=== PATIENT | female | born 1995 | race Caucasian/White ===

== ENCOUNTER 2020-02-05 16:13 | Outpatient (CLI) | payer OTHER, SELFPAY ==
--- NOTE | 2020-02-05 16:45 | MR_ITS ---
WS: [id number] MRI RIGHT KNEE NONCONTRAST TECHNIQUE: Axial PD, coronal PD fat sat, coronal PD, sagittal PD, and sagittal PD fat-sat images obta ined. CLINICAL INFORMATION: RT KNEE PAIN COMPARISON: None. FINDINGS: Distal quadriceps and patella tendons are intact. Hypertrophic patella. Normal ACL and PCL. Evidence of recent lateral patellar dislocation with kissing contusions on the patella and lateral femoral con dyle. Osteochondral injury involving the medial patella facet. Intrasubstance partial tear involving the medial patellofemoral ligament at the insertion. Patella retinaculum appears intact. Somewhat shallow trochlear groove. Residual lateral subluxation of the patella. Mild chondromalacia p atella. No visualized avulsed osteochondral fragments or intra-articular loose bodies. Normal medial and lateral meniscus. No acute appearing meniscal tears. Normal medial and lateral join t compartments. Medial and lateral collateral ligaments are intact. Normal popliteal fossa. MR/MR knee RT wo con* [id number] IMPRESSION: 1. Evidence of recent lateral patellar dislocation with kissing contusion on t he medial aspect of the patella and lateral femoral condyle with contusion. No visualized avulsed osteochondral fragments. 2. Partial intrasubstance tear involving the medial patellofemoral ligament at the insertion. Retinaculum otherwise appears intact 3. Mild chondromalacia patella 4. Shallow trochlear groove with residual lateral subluxation of patella. 5. Normal ACL and PCL.
== END 2020-02-05 16:14 | disposition home or self-care (01) ==
PROVIDERS: Visit Provider Nurse Practitioner
DX: S76.111A Strain of right quadriceps muscle, fascia and tendon, initial encounter (principal); X58.XXXA Exposure to other specified factors, initial encounter
CPT/HCPCS: 73721

== ENCOUNTER → 2020-02-07 11:13 | Outpatient (BNVA) | payer OTHER, SELFPAY | PROVIDERS: Referring Provider Nurse Practitioner; Visit Provider Orthopaedic Surgery | DX: M25.361 Other instability, right knee (principal); M25.362 Other instability, left knee; M25.562 Pain in left knee | CPT/HCPCS: 73560; 73565 ==

== ENCOUNTER 2020-02-22 15:02 | Outpatient (CLI) | payer OTHER, SELFPAY ==
--- NOTE | 2020-02-22 15:15 | MR_ITS ---
WS: [id number] MRI LEFT KNEE NONCONTRAST TECHNIQUE: Axial PD, coronal PD fat sat, coronal PD, sagittal PD, and sagittal PD fat-sat images obta ined. CLINICAL INFORMATION: M25.362 Other instability, left knee COMPARISON: None. FINDINGS: Distal quadriceps and patella tendons are intact. Slightly hypertrophic patella. No significant joint effusion. Small amount of prepatellar soft tissue edema. Normal ACL and PCL. Medial and lateral meni scus are normal in appearance. No acute appearing meniscal tears. Mild thinning of the medial and lat eral meniscus. Patellar instability with lateral subluxation of the patella from the trochlear groove. Mild chondrom alacia patella. Medial and lateral patellar retinacula appear intact. No ligamentous edema. No eviden ce of subchondral contusion or subchondral fracture to indicate recent traumatic dislocation. Somewha t shallow trochlear groove. Tiny amount of signal abnormality inferior pole of the patella. No visual ized loose bodies. Medial and lateral collateral ligaments appear intact. No evidence of ligamentous collateral ligament injury. No edema along the femoral condyles or tibial plateau. Small lobular popliteal cyst measurin g 0.5 x 2.0 CCM. MR/MR knee LT wo con* [id number] IMPRESSION: 1. Evidence of patellar instability with lateral subluxation of the patella fr om the trochlear groove. Correlation for patellar instability. 2. Medial and lateral patellar retinacula appear intact. No evidence of femora l contusion to indicate recent traumatic dislocation. Tiny amount of edema frank g the inferior pole of the patella. 3. Somewhat shallow trochlear groove. 4. Anterior and posterior cruciate ligaments are intact. 5. No acute appearing meniscal tears. 6. Normal bone marrow signal involving the distal femoral condyles and tibial plateau. No bony contusion. 7. Small popliteal cyst
== END 2020-02-22 15:03 | disposition home or self-care (01) ==
LOC: RADSHAW 15:06
PROVIDERS: Visit Provider Orthopaedic Surgery
DX: M25.362 Other instability, left knee (principal); M71.22 Synovial cyst of popliteal space [Baker], left knee
CPT/HCPCS: 73721

== ENCOUNTER → 2020-04-12 12:37 | Outpatient (BNVA) | payer OTHER, SELFPAY | PROVIDERS: Visit Provider Orthopaedic Surgery | DX: Z11.59 Encounter for screening for other viral diseases (principal) | CPT/HCPCS: 87635 ==

== ENCOUNTER 2020-04-18 06:48 | Day surgery (SDC) | payer OTHER, SELFPAY ==
[2020-04-17 11:02] VITALS: BMI 24.1
[2020-04-18] VITALS (9 sets, daily range): BP systolic 105–130; BP diastolic 65–88; PULSE 81–99; RESP 12–18; TEMP 36.5–36.7; O2SAT 94–100
--- NOTE | 2020-04-18 | SCC_ITS ---
Procedure Done: Left medial patellofemoral ligament reconstruction, diagnostic arthroscopy left knee 40.5 seconds of fluoroscopic guidance, for a cumulative dose of 1.76 mGy, was provided to Dr. Marcos by the radiology department. C-arm images of the LEFT knee were saved for the patient's permanent record. [facility] MED[facility] CENTERFrancie
--- NOTE | 2020-04-18 | XR_ITS ---
WS: [id number] INTRAOPERATIVE TECHNIQUE: 3 Spot fluoroscopic images for intraoperative purposes. FLUOROSCOPY TIME: 40.5 seconds CLINICAL INFORMATION: patellar instability lt. knee COMPARISON: None. FINDINGS: 3 fluoroscopic intraoperative images obtained for patellar instability XR/XR knee LT 1-2V [id number] IMPRESSION: Images obtained for intraoperative purposes.
[2020-04-18 07:02] LABS: OR HCG Qualitative Urine Negative (Negative)
--- NOTE | 2020-04-18 07:23 | ANES.PREANE2 ---
Pre-Anesthetic Assessment Pre-Anesthetic Assessment: Height/Weight: Height 1.65 m Weight 65.771 kg Temp Pulse Resp BP Pulse Ox 98.0 F 81 18 115/70 100 04/18/20 07:06 04/18/20 07:06 04/18/20 07:06 04/18/20 07:06 04/18/20 07:06 Preop Diagnosis: Left patellar instability Proposed Procedure: Operation Date: 04/18/20 08:30 Proposed Procedures p Left Knee Patellofemoral Ligament Reconstruction 53170 M25.62(Left) - Gonzales Marcos MD Familial anesthetic complications: None Was Beta Michael taken within 24 hours: N/A Last intake: NPO > 8 hrs Social: Social History: No alcohol and No tobacco Exam: Pre-Anes Outpt Exam: alert, oriented x 3, clear to auscultation bilaterally and regular rate & rhythm Airway: Cervical ROM: WNL MP: 1 Dentition: Chipped Pulmonary: Pulmonary: Asthma CV/HEM: CV/HEM: Anemia ( Borderline ) Metabolic: Metabolic: Thyroid Neuropsych: Neuropsych: Anxiety Anesthetic Plan: ASA status: 2 Anesthesia: General Risk of > 500 ml blood loss (7ml/kg in children): No Data Anesthesia Other Labs: Laboratory Results - last 48 hr 04/18/20 06:55 Urine HCG, Qual Negative Cardiac Studies: No Data to Display
[2020-04-18] MEDS: sodium chloride 0.9% 1,000 ML 30 ML IV (07:32)
--- NOTE | 2020-04-18 08:32 | P.HP_ITS ---
Same Day Surgery H&P Indication for Procedure/HPI DATE OF PROCEDURE: April 18, 2020 CHIEF COMPLAINT/INDICATIONFOR SURGICAL PROCEDURE: Left knee lateral patellar instability with recurrent dislocations. MRI and exam suggest normal bony relationships. Here for medial patellofemoral ligament reconstruction PREOP DIAGNOSIS: Left patellar instability PLANNED PROCEDRUE: Operation Date: 04/18/20 08:30 Proposed Procedures p Left Knee Patellofemoral Ligament Reconstruction 19323 M25.62(Left) - Gonzales Marcos MD Medications/Allergies* Home Medications Medication Instructions Recorded Confirmed Type citalopram 20 mg tablet 20 mg PO DAILY 02/07/20 04/18/20 History levothyroxine 75 mcg PO DAILY 04/17/20 04/18/20 History albuterol sulfate 1 inh INHALATION QID PRN 04/18/20 04/18/20 History ascorbic acid (vitamin C) [Vitamin 500 mg PO DAILY 04/18/20 04/18/20 History C] iron 325 mg PO DAILY 04/18/20 04/18/20 History norgestimate-ethinyl estradiol 1 tab PO DAILY 04/18/20 04/18/20 History [Tri-Linyah] Allergies/Adverse Reactions Allergy/AdvReac Type Severity Reaction Status Date / Time No Known Allergies Allergy Verified 04/17/20 10:59 Current Medications: Generic Name Dose Route Start Last Admin Trade Name Freq PRN Reason Stop Dose Admin Sodium Chloride 1,000 mls @ 30 mls/hr 04/18/20 07:00 04/18/20 07:32 Sodium Chloride 0.9% IV 04/19/20 06:59 30 mls/hr .Q24H JAYSHREE Administration Pertinent Exam Findings alert, oriented x 3, clear to auscultation bilaterally and regular rate & rhythm Recommendations Surgery/Procedure today Coding Level of Care Code Acute Admissions Dean for Dorian Batista
--- NOTE | 2020-04-18 10:39 | PM.OP ---
Operative Report Date of procedure: April 18, 2020 Pre-op Diagnosis: Left patellar instability Post-op diagnosis: same Post-op Findings: Same Procedure Done: Left medial patellofemoral ligament reconstruction, diagnostic arthroscopy left knee Implants: 6 x 25 mm BioSure PK screw Pathology: none sent Surgeon: Gonzales Marcos Anesthesia: General Estimated blood loss (mL): 20 Tourniquet time (min): 57 Findings: The patient had no chondromalacia. Meniscal tearing, or central stabilizing ligamentous injuries on arthroscopy. She had a normal tracking patella on exam but excessive laxity to lateral translation and with the knee flexed 30 degrees, her patella could be dislocated Condition: stable Disposition: PACU Procedure: The patient was taken to the operating room and given a general anesthesia. She was given 2 g of Ancef. Her left lower extremity was prepped and draped in the usual fashion with the left knee exposed. A timeout was performed. A lateral stab wound was made and the arthroscope introduced into the knee joint. Diagnostic arthroscopy was performed with essentially no abnormal findings identified. Arthroscopy equipment was then removed and the tourniquet inflated to 250 mmHg. A 3 cm long incision was made over the medial tibial plateau and dissection carried down bluntly to the pes anserine tendons. Sartorius fascia was divided and the semitendinosis and gracilis tendons identified. Both tendons are quite small and the larger semitendinosis was chosen for the reconstruction. Using a scalpel it was released from its insertion on the tibia. A tendon stripper was used to free the tendon from the vessel proximally. On the back table muscle was debrided from the tendon. Both ends of the tendon were fixed with a ultra tape suture. A 3 cm long incision was made midway between the medial epicondyle and patella. Dissection was then carried to the medial patella. A guidepin was driven's from the medial patella just anterior to the articular surface at the midpoint of the patella and directed proximally and anteriorly exiting the anterior patella. The [employer] reamer was then passed over the guidepin. The pin was removed and a suture passed through the drill bit. The drill bit was removed leaving the suture in place. This was used to shuttle the semitendinosis sutures across the tunnel and the graft was shuttled across the tunnel. A hemostat was then passed beneath her vastus medialis oblique us musculature exiting the superior patella quadriceps insertion and sutures were drawn back underneath the muscle bringing the tendon semitenderness back underneath the muscle. The graft doubled over fit snugly through a 6 mm tunnel. Utilizing C arm, Schottle's point was identified utilizing the proximal extent of the medial femoral condyle cartilage, the proximal extent Blumenberg's line amd the posterior cortex of the femur. The guidepin was driven proximally and anteriorly exiting the anterior lateral femur. Over this guidepin the 6 mm reamer was passed to a depth of 40 mm. The tunnel was completed with the Endobutton reamer. As with the patella a shuttle suture was placed through the drill bit and used to shuttle both ends of the semitendinosis tendon into the tunnel. The sutures were tensioned such that with the knee flexed 30 degrees the patella could be displaced no more than 50% of its width. It was secured with a 6 x 25 mm screw with excellent purchase. Wounds were irrigated with saline. The sartorius fascia and subcutaneous tissue were closed with 2-0 Vicryl. The skin incisions were closed with a running 3-0 Prolene in the arthroscopy portal with a simple 3-0 Prolene stitch. Xeroflo gauze, sterile 4 x 4's, ABD pads, and Kerlix were placed over the knee. The patient was placed in a knee immobilizer, extubated, and taken recovery in stable condition.
[2020-04-18] MEDS: ondansetron 2 mg/ML SDV 2 mL 4 MG IVP ×2 (10:50→11:27)
[2020-04-18] MEDS: oxyCODONE 5 mg IR Tab/Cap PO (11:19)
--- NOTE | 2020-04-18 12:30 | ANE.PACU2 ---
Inpatient post-anesthesia follow up: Airway intact: Yes Vital signs: Temperature 97.8 F Pulse Rate 92 Respiratory Rate 18 Blood Pressure 110/80 Pulse Oximetry 97 Oxygen Delivery Me thod Room Air Oxygen Flow Rate 6 Fraction of Inspir ed Oxygen Hydration adequate: Yes Nausea and vomiting: Yes (resovled with zofran, able to keep crackers and water down, no vo) Pain level: 3 Mental status: Baseline
== END 2020-04-18 12:13 | disposition home or self-care (01) ==
PROVIDERS: Anesthesiology; Visit Provider Orthopaedic Surgery
PROC: (CPT 27427; principal; 2020-04-18 08:30)
DX: M23.52 Chronic instability of knee, left knee (principal); J45.909 Unspecified asthma, uncomplicated; F41.9 Anxiety disorder, unspecified
CPT/HCPCS: 27427; 12345; 73560; 76000; 81025; 84703; 96374; C1713; J0131; J0690; J1580; J2405; J2704; J3010; J3490; J7030

== ENCOUNTER 2020-05-07 09:36 | Outpatient (RCR) | payer OTHER, SELFPAY | END 2020-05-13 23:59 | disposition home or self-care (01) | LOC: SPT 09:36 | PROVIDERS: PCP Orthopaedic Surgery; Referring Provider Orthopaedic Surgery; Visit Provider Orthopaedic Surgery | DX: Z47.89 Encounter for other orthopedic aftercare (principal); M25.362 Other instability, left knee | CPT/HCPCS: 97161 ==

== ENCOUNTER 2020-05-14 06:00 | Outpatient (RCR) | payer OTHER, BC, SELFPAY | END 2020-06-13 23:59 | disposition home or self-care (01) | LOC: SPT 06:00 | PROVIDERS: PCP Orthopaedic Surgery; Referring Provider Orthopaedic Surgery; Visit Provider Orthopaedic Surgery | DX: Z47.89 Encounter for other orthopedic aftercare (principal) | CPT/HCPCS: 97110 ==

== ENCOUNTER 2020-06-14 06:00 | Outpatient (RCR) | payer BC, OTHER, SELFPAY | END 2020-07-14 23:59 | disposition home or self-care (01) | LOC: SPT 06:00 | PROVIDERS: PCP Orthopaedic Surgery; Referring Provider Orthopaedic Surgery; Visit Provider Orthopaedic Surgery | DX: Z47.89 Encounter for other orthopedic aftercare (principal) | CPT/HCPCS: 97110 ==

== ENCOUNTER 2020-07-15 06:00 | Outpatient (RCR) | payer BC, OTHER, SELFPAY | END 2020-08-11 23:59 | disposition home or self-care (01) | LOC: SPT 06:00 | PROVIDERS: PCP Orthopaedic Surgery; Referring Provider Orthopaedic Surgery; Visit Provider Orthopaedic Surgery | DX: Z47.89 Encounter for other orthopedic aftercare (principal) | CPT/HCPCS: 97110 ==